=== PATIENT | female | born 1950 | race Asian ===

== ENCOUNTER 2018-05-15 10:40 | Emergency (ER) | payer OTHER ==
[~2018-05-15] VITALS: Ht 152.4 cm; Wt 45.4 kg
[~2018-05-15 10:40] MED LIST: CALCIUM 600 +1 EAC1 PO; CLARITIN5 MG PO; FLEXERIL PO; FOSAMAX 70 MG T70 M1 PO; HYDROCODON-ACE1 EAC7 PO; NAPROSYN375 MG PO; PROTONIX40 MG PO
[2018-05-15 10:59] LABS: URINE BILIRUBIN NEGATIVE (Negative); URINE BLOOD TRACE (Negative); URINE CLARITY CLEAR; URINE COLOR YELLOW; URINE GLUCOSE-RANDOM NEGATIVE (Negative); URINE KETONES NEGATIVE (Negative); URINE LEUKOCYTES-REFLEX NEGATIVE (Negative); URINE NITRITE-REFLEX NEGATIVE (Negative); URINE PROTEIN NEGATIVE (Negative); URINE SPECIFIC GRAVITY <= 1.005 (1.005-1.030); URINE UROBILINOGEN 0.2 E.U./dl (0.2-1.0)
[2018-05-15 11:12] LABS: ABSOLUTE LYMPHOCYTES 1.1 thou/uL (0.8-5.3); ABSOLUTE MONOCYTES 0.3 thou/uL (0.0-1.2); ABSOLUTE NEUTROPHILS 4.9 thou/uL (1.6-8.1); BASOPHILS 0.5 %; EOSINOPHILS 0.4 %; HEMOGLOBIN 13.7 gm/dL (12.0-15.0); LYMPHOCYTES 17.6 %; MCH 26.9 pg (26.0-34.0); MCHC 31.9 g/dL (28.0-37.0); MCV 84.3 fL (80.0-100.0); MONOCYTES 5.2 %; MPV 6.6 fl. (7.2-11.1); NUCLEATED RBCS 0 /100WBC; PLATELET COUNT* 321 thou/uL (150-400); POLYS 76.3 %; RDW-CV 13.9 % (10.5-14.5); WBC 6.5 thou/uL (4.0-11.0)
[2018-05-15 11:18] LABS: CALCIUM 9.1 mg/dL (8.5-10.1); CREATININE 0.8 mg/dL (0.6-1.3); POTASSIUM 3.4 mmol/L (3.5-5.1)
[2018-05-15 11:23] LABS: ALBUMIN 3.6 g/dL (3.4-5.0); TOTAL BILIRUBIN 0.3 mg/dL (<0.1-1.0); TOTAL PROTEIN 7.7 g/dL (6.4-8.2)
[2018-05-15 11:37] LABS: TROPONIN-I LEVEL <0.06 ng/mL (<0.06)
[2018-05-15 12:46] VITALS: BP 133/91
--- NOTE | 2018-05-15 18:41 | EKG ---
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 BRITO : 1950 Requested By: Alba Mckeon Order Number: [id number] MD: Luis M Montemayor Measurements Intervals [place] Rate: 73 P: 52 HI: 176 QRS: 21 QRSD: 86 T: 10 QT: 368 QTc: 406 Interpretive Statements Sinus rhythm Baseline wander in lead(s) V6 Compared to ECG 08/24/2012 21:06:20 Ventricular premature complex(es) no longer present Electronically Signed On 05-15-2018 18:41:01 [employer] by Luis M Montemayor [email or web address] <ELECTRONICALLY SIGNED> By: Luis M Montemayor MD, [facility] 05/15/18 [id number] [id number] [id number] Luis M Montemayor MD, [facility] /EPI
== END 2018-05-15 12:46 | disposition home or self-care (01) ==
LOC: M.ERS 10:40
PROVIDERS: Physician Assistant
DX: R53.1 Weakness (principal); R11.0 Nausea; M81.0 Age-related osteoporosis without current pathological fracture; Z88.0 Allergy status to penicillin; Z88.5 Allergy status to narcotic agent

== ENCOUNTER 2018-05-16 21:01 | Emergency (ER) | payer OTHER ==
[~2018-05-16] VITALS: Ht 152.4 cm; Wt 49.9 kg
[2018-05-16 22:23] LABS: ABSOLUTE EOSINOPHILS 0.1 thou/uL (0.0-0.7); ABSOLUTE LYMPHOCYTES 1.9 thou/uL (0.8-5.3); ABSOLUTE MONOCYTES 0.6 thou/uL (0.0-1.2); ABSOLUTE NEUTROPHILS 4.2 thou/uL (1.6-8.1); BASOPHILS 0.7 %; EOSINOPHILS 1.7 %; HEMATOCRIT 40.4 % (37.0-47.0); LYMPHOCYTES 27.4 %; MCH 27.1 pg (26.0-34.0); MCHC 32.2 g/dL (28.0-37.0); MCV 84.3 fL (80.0-100.0); MONOCYTES 8.3 %; MPV 6.8 fl. (7.2-11.1); NUCLEATED RBCS 0 /100WBC; PLATELET COUNT* 308 thou/uL (150-400); POLYS 61.9 %; RBC 4.79 mil/uL (4.20-5.00); RDW-CV 13.9 % (10.5-14.5); WBC 6.9 thou/uL (4.0-11.0)
[2018-05-16 22:30] LABS: CALCIUM 9.5 mg/dL (8.5-10.1); CREATININE 0.9 mg/dL (0.6-1.3); POTASSIUM 3.9 mmol/L (3.5-5.1)
[2018-05-16 22:34] LABS: ALBUMIN 3.5 g/dL (3.4-5.0); TOTAL BILIRUBIN 0.2 mg/dL (<0.1-1.0); TOTAL PROTEIN 7.3 g/dL (6.4-8.2)
[2018-05-17 00:56] VITALS: BP 162/92
[2018-05-23 10:10] LABS: B.burgdorf.IgG Negative (()); B.burgdorf.IgM Negative (())
== END 2018-05-17 00:58 | disposition home or self-care (01) ==
LOC: M.ERS 21:01
PROVIDERS: Personal Emergency Response Attendant
DX: R53.1 Weakness (principal); M81.0 Age-related osteoporosis without current pathological fracture; Z88.0 Allergy status to penicillin; Z88.5 Allergy status to narcotic agent

== ENCOUNTER → 2019-12-25 | Outpatient (CLI) | payer MEDICARE | LOC: M.CT 14:19 | PROVIDERS: ATTEND Registered Nurse Diabetes Educator | DX: K92.1 Melena (principal); K76.0 Fatty (change of) liver, not elsewhere classified ==

== ENCOUNTER → 2020-01-06 | Outpatient (CLI) | payer MEDICARE | LOC: M.RAD 10:10 | PROVIDERS: ATTEND Registered Nurse Diabetes Educator | DX: Z12.31 Encounter for screening mammogram for malignant neoplasm of breast (principal) ==